=== PATIENT | female | born 1995 | race Caucasian/White ===

== ENCOUNTER 2024-05-19 00:02 | Inpatient (IN) | payer OTHER, SELFPAY ==
[2024-05-19 00:04] VITALS: BP 105/72; PULSE 83; RESP 18; TEMP 36.6; O2SAT 95; BMI 34.8
--- NOTE | 2024-05-19 00:39 | ED.PSYCH ---
HPI - Psych General Chief Complaint: Psychiatric Symptoms Stated Complaint: crisis Time Seen by Provider: 05/19/24 00:31 Source: patient Mode of arrival: ambulatory Limitations: no limitations History of Present Illness ED Provider: Dr. Brittany Anderson HPI Narrative: Patient comes to the emergency room complaining of suicidal ideation. Patient states that 3 days ago, patient at home when the patient was with him. Patient feels that, states that she wants to slit her wrists in front of everyone. Per nursing report, patient arrived to the triage area with her guardian become lives with. Patient had left home without telling anybody and the guarding called for help. Patient reporting feeling anxious, denies HI. Related Data Allergies Allergy/AdvReac Type Severity Reaction Status Date / Time No Known Allergies Allergy Verified 05/19/24 00:09 [No Known Allergies*] Review of Systems Review of Systems: Constitutional : No Weight loss, No Fever, No Chills, No Night Sweats, No Fatigue, No Malaise ENT/Mouth : No Hearing loss, No Ear Pain, No Nasal Congestion, No Sinus Pain, No Hoarseness, No sore throat, No Rhinorrhea, No Swallowing Difficulty Eyes: No Eye Pain, No Swelling, No Redness, No Foreign Body, No Discharge, No Vision Changes Cardiovascular : No Chest Pain, No SOB, No Dyspnea on Exertion, No Orthopnea, No Edema, No Palpitations Respiratory : No Cough, No Sputum, No Wheezing, No Smoke Exposure, No Dyspnea Gastrointestinal : No Nausea, No Vomiting, No Diarrhea, No Constipation, No abdominal Pain, No Hematochezia, No Melena Genitourinary : no irregular bleeding, No Dysuria, No Urinary Frequency, No Hematuria, No Urinary Incontinence, No Urgency, No Flank Pain, No Urinary Flow Changes, No Hesitancy Musculoskeletal : No joint pain, No Myalgias, No Joint Swelling Skin : No Skin Lesions, No rash Neuro : No Weakness, No Numbness, No Paresthesias, No Loss of Consciousness, No Dizziness, No Headache Psych : No Anxiety/Panic, complaining of depression, SI, no HI Heme/Lymph: No Bruising, No Bleeding,No Lymphadenopathy Endocrine : No Polyuria, No Polydipsia, No Temperature Intolerance PMFSH Social History Social History Do you have a plan to hurt others: No Plan Physical Exam Vital Signs: Vital Signs: Last Vital Signs Temp 97.8 F 05/19/24 00:04 Pulse 83 05/19/24 00:04 Resp 18 05/19/24 00:04 BP 105/72 05/19/24 00:04 Pulse Ox 95 05/19/24 00:04 O2 Del Method Room Air 05/19/24 00:04 BMI result Body Mass Index 34.8 Const: Other: Appearance: Alert. Oriented X3. No acute distress. Eyes: Pupils equal, round and reactive to light. Bilateral mydriasis ENT: Pharynx normal. Neck: Normal inspection. Neck supple. No lymph nodes noted. No crepitus CVS: Normal heart rate and rhythm. Pulses normal. Normal S1 and S2 Respiratory: No respiratory distress. Breath sounds normal. No Wheezing. No rales Abdomen: Soft and nontender. No rigidity. No distention. Skin: Skin warm and dry. Normal skin color. Normal skin turgor. Extremities: No lower extremity edema. No Lacerations. No Rash Neuro: Oriented X 3. No motor deficit. No sensory deficit. Moving all extremities. No slurred speech. CN 2 through 12 grossly intact Psych: calm, cooperative, normal affect Course Course Course Narrative: -all of patient's labs pending -care team consult pending Medical Decision Making Differential Diagnosis Differential Diagnoses: The differential diagnosis associated with the presentation includes (Anxiety, depression, grieving) Admission/Observation Consideration of admission/observation: Escalation of care including admission/observation considered (Patient waiting to be seen by the care team to determine patient's disposition) Discharge Plan Discharge Clinical Impression: Suicidal ideation, Depression Patient Disposition: Still a Patient Print Language: [place]
[2024-05-19 01:37] LABS: MANUAL DIFF FLAG NO
[2024-05-19 01:40] LABS: Delay - Chemistry DELAY
[2024-05-19 01:41] LABS: Basophils Absolute Auto 0.1 X10*3/uL (0.0-0.2); Basophils Percent Auto 0.9 % (0-2); Eosinophils Absolute Auto 0.1 X10*3/uL (0.0-0.4); Eosinophils Percent Auto 0.9 % (0-4); Hematocrit 38.2 % (37.0-47.0); Hemoglobin 13.3 g/dl (12.0-16.0); Imm Gran Abs Auto 0.01 X10*3/uL (0.00-0.03); Imm Gran Pct Auto 0.1 % (0.0-0.4); Lymphocytes Absolute Auto 2.3 X10*3/uL (1.2-4.9); Mean Corpuscular HGB Conc 34.8 g/dl (31.0-35.0); Mean Corpuscular Hemoglobin 29.3 pg (27.0-33.0); Mean Corpuscular Volume 84.1 fL (80.0-98.0); Mean Platelet Volume 10.1 fL (9.4-12.3); Monocytes Absolute Auto 0.7 X10*3/uL (0.1-1.2); Monocytes Percent Auto 9.2 % (2-11); Neutrophils Absolute Auto 4.4 x10*3/uL (2.0-8.3); Neutrophils Percent Auto 58.9 % (45-73); Platelet Count 318 X10*3/uL (160-400); Red Blood Count 4.54 X10*6/uL (4.20-5.50); Red Cell Distribution Width 12.9 % (11.0-16.0); White Blood Count 7.5 X10*3/uL (4.8-10.8)
[2024-05-19 01:41] LABS: Appearance Urine Cloudy; Color Urine Dark Yellow; Glucose Urine UA Negative (Negative); Leukocyte Esterase Urine Trace (Negative); Nitrite Urine Negative (Negative); PH 5.5 (5.0-9.0); Specific Gravity - Urine >= 1.030 (1.005-1.025); UMIC TRIGGER UACC YES; Urine Blood Negative (Negative); Urine Ketones Trace mg/dL (Negative); Urine Protein Trace mg/dL (Neg-Trace)
[2024-05-19 01:49] LABS: Amphetamine Screen Urine Not Detected (Not Detect); Barbiturates, Urine Not Detected (Not Detect); Benzodiazepines Screen Urine Not Detected (Not Detect); Buprenorphine Scr Not Detected (Not Detect); Cannabinoid Screen Urine Not Detected (Not Detect); Cocaine Screen Urine Not Detected (Not Detect); Fentanyl, urine Not Detected (Not Detect); Methadone Screen, Urine Not Detected (Not Detect); Opiate Screen Urine Not Detected (Not Detect); Oxycodone Screen Urine Not Detected (Not Detect); Phencyclidine Screen Urine Not Detected (Not Detect)
[2024-05-19 01:51] LABS: Bacteria Urine 1+ (None Seen); Hyaline Casts Urine 0-2 /LPF (0-2); RBC Urine 0-2 /HPF (0-2); WBC Urine 0-5 /HPF (0-5)
[2024-05-19 02:09] LABS: Alanine Aminotransferase 23 U/L (0-31); Albumin Level 4.3 g/dL (3.5-5.0); Alkaline Phosphatase 93 U/L (39-117); Anion Gap 11 (12-20); Aspartate Amino Transferase 18 U/L (5-31); Bilirubin Total 0.3 mg/dL (0.0-1.0); Blood Urea Nitrogen 16 mg/dL (9-16); Calcium 9.9 mg/dL (8.4-10.2); Carbon Dioxide 27 mmol/L (22-29); Chloride 106 mmol/L (96-108); Creatinine Clr Calc Pharmacy 103.2; Estimated Glomerular Filt Rate > 60; Ethanol < 10 mg/dL; Glucose Random 103 mg/dL (60-115); HCG Quantitative < 2 mIU/mL; Potassium 4.2 mmol/L (3.3-5.1); Sodium 140 mmol/L (135-145); Total Protein 7.8 g/dL (6.5-8.0)
[2024-05-19 03:23] LABS: Acetaminophen LAB < 3 mcg/mL (<30); Salicylate < 5.0 mg/dL (15-30)
[2024-05-19 07:26] VITALS: RESP 16
--- NOTE | 2024-05-19 10:15 | PC.NURSE ---
Assumed care of patient at 0645, patient appears to be in no apparent distress this am, ambulating with steady gait around BH pod, offering no complaints. Patient aware of plan of care for inpatient bedsearch
[2024-05-19 10:39] VITALS: BP 109/53; PULSE 85; RESP 16; TEMP 36.6; O2SAT 99
--- NOTE | 2024-05-19 12:39 | MHC.CARE ---
Mother called and reports patient was seen by [facility] in the community and dispo is for inpatient level of care. Mother is legal guardian and will email paperwork to psychreferral email.
[2024-05-19 16:38] VITALS: RESP 16
[2024-05-19 20:09] VITALS: BP 124/67; PULSE 95; RESP 20; TEMP 36.5; O2SAT 97
[2024-05-19] MEDS: Escitalopram Oxalate 10 MG TABLET PO (20:21)
[2024-05-19] MEDS: LORazepam 1 MG TABLET PO (20:47)
[2024-05-20 06:37] VITALS: BP 104/74; PULSE 108; RESP 17; TEMP 36.8; O2SAT 97
--- NOTE | 2024-05-20 15:57 | MHC.CARE ---
Received a call from [facility] with Information for pre-authorization: [id number] ([facility])
[2024-05-20 16:47] VITALS: BP 99/60; PULSE 77; RESP 16; TEMP 36.8; O2SAT 97
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
[2024-05-20 20:00] VITALS: BP 116/67; PULSE 106; RESP 16; TEMP 36.3; O2SAT 96
[2024-05-20] MEDS: traZODone HCL 50 MG TABLET PO (21:15)
[2024-05-20] MEDS: Escitalopram Oxalate 10 MG TABLET PO (21:15)
[2024-05-21 07:47] VITALS: BP 102/50; PULSE 73; RESP 14; TEMP 36.6; O2SAT 96
[2024-05-21 09:10] LABS: Alanine Aminotransferase 20 U/L (0-31); Albumin Level 4.1 g/dL (3.5-5.0); Alkaline Phosphatase 94 U/L (39-117); Anion Gap 12 (12-20); Aspartate Amino Transferase 15 U/L (5-31); Blood Urea Nitrogen 18 mg/dL (9-16); Calcium 9.7 mg/dL (8.4-10.2); Carbon Dioxide 27 mmol/L (22-29); Chloride 106 mmol/L (96-108); Cholesterol 172 mg/dL (<200); Creatinine Clr Calc Pharmacy 109.5; Estimated Glomerular Filt Rate > 60; Glucose Fasting 91 mg/dL (60-99); HDL Cholesterol 59 mg/dL (>40); LDL Cholesterol Calculated 101 mg/dL (<100); Potassium 4.2 mmol/L (3.3-5.1); Sodium 141 mmol/L (135-145); Total Protein 7.4 g/dL (6.5-8.0); Triglycerides 61 mg/dL (<150)
[2024-05-21 09:28] LABS: Bilirubin Total 0.5 mg/dL (0.0-1.0)
[2024-05-21] MEDS: hydrOXYzine HCL 25 MG TABLET PO (10:48)
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
[2024-05-21 21:30] VITALS: PULSE 78; RESP 16; TEMP 36.8; O2SAT 96
[2024-05-21] MEDS: busPIRone HCl 5 MG TABLET PO (21:53)
[2024-05-21] MEDS: Escitalopram Oxalate 10 MG TABLET PO (21:53)
[2024-05-22 07:59] VITALS: BP 121/71; PULSE 80; RESP 14; TEMP 37.1; O2SAT 98
--- NOTE | 2024-05-22 08:59 | HO.PSYCHPN ---
Subjective Subjective Date of Service: 05/22/24 Reason For Visit: crisis Subjective Notes: 3 Day Interim History: Reviewed with Dr. Harper. pt signed 3 day notice. Pt reports feeling calmer today; pt stated, I'm still having impulsivity but I'm starting to feel like I can control it. I also still am having thoughts of self harm but not as much . Pt is hoping to discharge on Monday. Pt denies HI/VH/AH. Medication Compliance: Yes Side effects from medications: No Attending Groups: Yes Review of Systems Constitutional: Reports as per HPI Eyes: Reports as per HPI Reports as per HPI Cardiovascular: Reports as per HPI Respiratory: Reports as per HPI Gastrointestinal: Reports as per HPI Musculoskeletal: Reports as per HPI Skin/Breast: Reports as per HPI Reports as per HPI Psychiatric: Reports as per HPI Endocrine: Reports as per HPI Hematologic/Lymphatic: Reports as per HPI Allergic/Immunologic: Reports as per HPI Mental Status Exam Mental Status Exam Narrative: Pt is alert and oriented; behavior is cooperative, friendly and calm; dressed in casual attire; mood is described as calmer ; eye contact appropriate; Speech is slower rate, normal volume and not pressured, pt has a speech impediment; thought process is organized; Thought content is on tx; otherwise pertinent to relevant topics and without any delusional content, paranoid ideations or grandiosity; denies HI/VH/AH. Pt reports suicidal ideation with plan to cut wrists. Diagnostics Vital Signs (24Hr): Vital Signs - 24 hr 05/21/24 21:30 05/22/24 07:59 Temperature 98.3 F 98.7 F Pulse Rate 78 80 Respiratory Rate 16 14 Blood Pressure 121/71 Pulse Oximetry 96 98 Oxygen Delivery Method Room Air Room Air BMI result Body Mass Index 34.8 Labs 05/19/24 01:31 05/21/24 08:37 Labs: Laboratory Results - last 48 hr 05/21/24 08:37 Sodium 141 Potassium 4.2 Chloride 106 Carbon Dioxide 27 Anion Gap 12 BUN 18 H Creatinine 0.81 Estim Creat Clear Calc 109.5 Estimated GFR > 60 Fasting Glucose 91 Calcium 9.7 Total Bilirubin 0.5 AST 15 ALT 20 Alkaline Phosphatase 94 Total Protein 7.4 Albumin 4.1 Triglycerides 61 Cholesterol 172 LDL Cholesterol, Calc 101 H HDL Cholesterol 59 Medications Medications Current Medications Acetaminophen (Acetaminophen 325 Mg Tablet) 650 mg PO Q6H PRN PRN Reason: Headache/Pain Mild Scale (1-3) Al Hydroxide/Mg Hydroxide (Magnesium Hydrox/Alum Hydrox 30 Ml Oral.Susp) 30 ml PO Q6H PRN PRN Reason: Heartburn/Nausea Buspirone HCl (Buspirone Hcl 5 Mg Tablet) 5 mg PO TID ALFREDO Last Admin: 05/21/24 21:53 Dose: 5 mg Escitalopram Oxalate (Escitalopram Oxalate 10 Mg Tablet) 10 mg PO BEDTIME ALFREDO Last Admin: 05/21/24 21:53 Dose: 10 mg Hydroxyzine HCl (Hydroxyzine Hcl 25 Mg Tablet) 25 mg PO Q6H PRN PRN Reason: Anxiety Last Admin: 05/21/24 10:48 Dose: 25 mg Magnesium Hydroxide (Milk Of Magnesia 30 Ml Oral.Susp) 30 ml PO DAILY PRN PRN Reason: Constipation Nicotine Polacrilex (Nicotine Polacrilex 2 Mg Gum) 4 mg BUCCAL Q2H PRN PRN Reason: Nicotine Cravings Trazodone HCl (Trazodone Hcl 50 Mg Tablet) 50 mg PO BEDTIME MRX1 PRN PRN Reason: Insomnia Last Admin: 05/20/24 21:15 Dose: 50 mg Allergies Allergies Allergy/AdvReac Type Severity Reaction Status Date / Time No Known Allergies Allergy Verified 05/19/24 00:09 [No Known Allergies*] Assessment & Plan Assessment & Plan (1) MDD (major depressive disorder), recurrent episode, moderate: Status: Acute Code(s): F33.1 - Major depressive disorder, recurrent, moderate (2) PTSD (post-traumatic stress disorder): Status: Acute Code(s): F43.10 - Post-traumatic stress disorder, unspecified (3) Complicated grief: Status: Acute Code(s): F43.21 - Adjustment disorder with depressed mood Plan Patient is a 28 year old female with hx of MDD, PTSD and cerebral palsy who presented to ER with suicidal ideation secondary to her grandfather passing away. Plan: CV 15 minute safety checks Continue home medications Start: Buspar 5mg PO TID;risks/benefits reviewed. encourage groups obtain collateral referral to outpatient prescriber and therapist discharge planning 05/22: pt signed 3 day notice. Pt reports feeling calmer today; pt stated, I'm still having impulsivity but I'm starting to feel like I can control it. I also still am having thoughts of self harm but not as much . Pt is hoping to discharge on Monday. Pt denies HI/VH/AH. Patient educated on: diagnosis, medication risk/benefits and therapeutic strategies Informed Consent: understands Reason for continued inpatient stay Substantial Risk for: harm to self and med/psych decompensation Time Spent With Patient Time: Total time managing care of this patient today _20___ minutes.
[2024-05-22] MEDS: busPIRone HCl 5 MG TABLET PO ×3 (09:27→20:45)
[2024-05-22 19:40] VITALS: BP 111/56; PULSE 82; RESP 16; TEMP 36.6; O2SAT 98
[2024-05-22] MEDS: Escitalopram Oxalate 10 MG TABLET PO (20:45)
[2024-05-23 07:00] VITALS: BMI 34.3
[2024-05-23 07:35] VITALS: BP 107/63; PULSE 83; RESP 16; TEMP 36.4; O2SAT 98
[2024-05-23] MEDS: busPIRone HCl 5 MG TABLET PO ×3 (08:18→20:25)
--- NOTE | 2024-05-23 10:07 | HO.PSYCHPN ---
Subjective Subjective Date of Service: 05/23/24 Reason For Visit: crisis Subjective Notes: 3 Day Interim History: Pt reports feeling good; no complaints; behavior in good control; her affect is brighter ; she is eating meals. attending groups; pt signed 3 day notice. reports reduced intrusive self harm thoughts. Pt is hoping to discharge on Monday. Pt denies HI/VH/AH. Medication Compliance: Yes Review of Systems Review of Systems Constitutional : No Weight loss, No Fever, No Chills, No Night Sweats, No Fatigue, No Malaise ENT/Mouth : No Hearing loss, No Ear Pain, No Nasal Congestion, No Sinus Pain, No Hoarseness, No sore throat, No Rhinorrhea, No Swallowing Difficulty Eyes: No Eye Pain, No Swelling, No Redness, No Foreign Body, No Discharge, No Vision Changes Cardiovascular : No Chest Pain, No SOB, No Dyspnea on Exertion, No Orthopnea, No Edema, No Palpitations Respiratory : No Cough, No Sputum, No Wheezing, No Smoke Exposure, No Dyspnea Gastrointestinal : No Nausea, No Vomiting, No Diarrhea, No Constipation, No abdominal Pain, No Hematochezia, No Melena Genitourinary : no irregular bleeding, No Dysuria, No Urinary Frequency, No Hematuria, No Urinary Incontinence, No Urgency, No Flank Pain, No Urinary Flow Changes, No Hesitancy Musculoskeletal : No joint pain, No Myalgias, No Joint Swelling Skin : No Skin Lesions, No rash Neuro : No Weakness, No Numbness, No Paresthesias, No Loss of Consciousness, No Dizziness, No Headache Psych : No Anxiety/Panic, complaining of depression, SI, no HI Heme/Lymph: No Bruising, No Bleeding,No Lymphadenopathy Endocrine : No Polyuria, No Polydipsia, No Temperature Intolerance Constitutional: Reports as per HPI Eyes: Reports as per HPI Reports as per HPI Cardiovascular: Reports as per HPI Respiratory: Reports as per HPI Gastrointestinal: Reports as per HPI Musculoskeletal: Reports as per HPI Skin/Breast: Reports as per HPI Reports as per HPI Psychiatric: Reports as per HPI Endocrine: Reports as per HPI Hematologic/Lymphatic: Reports as per HPI Allergic/Immunologic: Reports as per HPI Mental Status Exam Mental Status Exam Narrative: Pt is alert and oriented; behavior is cooperative, friendly and calm; dressed in casual attire; mood is described as calmer ; eye contact appropriate; Speech is slower rate, normal volume and not pressured, pt has a speech impediment and speechis halting at times; thought process is organized; Thought content is on tx; otherwise pertinent to relevant topics and without any delusional content, paranoid ideations or grandiosity; denies HI/VH/AH. Pt reports suicidal ideation with plan to cut wrists. Diagnostics Vital Signs (24Hr): Vital Signs - 24 hr 05/22/24 19:40 05/23/24 07:35 Temperature 97.8 F 97.5 F Pulse Rate 82 83 Respiratory Rate 16 16 Blood Pressure 111/56 L 107/63 Pulse Oximetry 98 98 Oxygen Delivery Method Room Air Room Air BMI result Body Mass Index 34.8 Labs 05/19/24 01:31 05/21/24 08:37 Medications Medications Current Medications Acetaminophen (Acetaminophen 325 Mg Tablet) 650 mg PO Q6H PRN PRN Reason: Headache/Pain Mild Scale (1-3) Al Hydroxide/Mg Hydroxide (Magnesium Hydrox/Alum Hydrox 30 Ml Oral.Susp) 30 ml PO Q6H PRN PRN Reason: Heartburn/Nausea Buspirone HCl (Buspirone Hcl 5 Mg Tablet) 5 mg PO TID [facility] Last Admin: 05/23/24 08:18 Dose: 5 mg Escitalopram Oxalate (Escitalopram Oxalate 10 Mg Tablet) 10 mg PO BEDTIME [facility] Last Admin: 05/22/24 20:45 Dose: 10 mg Hydroxyzine HCl (Hydroxyzine Hcl 25 Mg Tablet) 25 mg PO Q6H PRN PRN Reason: Anxiety Last Admin: 05/21/24 10:48 Dose: 25 mg Magnesium Hydroxide (Milk Of Magnesia 30 Ml Oral.Susp) 30 ml PO DAILY PRN PRN Reason: Constipation Nicotine Polacrilex (Nicotine Polacrilex 2 Mg Gum) 4 mg BUCCAL Q2H PRN PRN Reason: Nicotine Cravings Trazodone HCl (Trazodone Hcl 50 Mg Tablet) 50 mg PO BEDTIME MRX1 PRN PRN Reason: Insomnia Last Admin: 05/20/24 21:15 Dose: 50 mg Allergies Allergies Allergy/AdvReac Type Severity Reaction Status Date / Time No Known Allergies Allergy Verified 05/19/24 00:09 [No Known Allergies*] Assessment & Plan Assessment & Plan (1) MDD (major depressive disorder), recurrent episode, moderate: Status: Acute Code(s): F33.1 - Major depressive disorder, recurrent, moderate (2) PTSD (post-traumatic stress disorder): Status: Acute Code(s): F43.10 - Post-traumatic stress disorder, unspecified (3) Complicated grief: Status: Acute Code(s): F43.21 - Adjustment disorder with depressed mood Plan Patient is a 28 year old female with hx of MDD, PTSD and cerebral palsy who presented to ER with suicidal ideation secondary to her grandfather passing away. Plan: CV 15 minute safety checks Continue home medications Start: Buspar 5mg PO TID;risks/benefits reviewed. encourage groups obtain collateral referral to outpatient prescriber and therapist discharge planning 05/22: pt signed 3 day notice. Pt reports feeling calmer today; pt stated, I'm still having impulsivity but I'm starting to feel like I can control it. I also still am having thoughts of self harm but not as much . Pt is hoping to discharge on Monday. Pt denies HI/VH/AH. Reason for continued inpatient stay Substantial Risk for: harm to self and inability to function Time Spent With Patient Time: Total time managing care of this patient today ____ minutes.
[2024-05-23 17:58] VITALS: BP 136/64; PULSE 71; TEMP 36.5; O2SAT 98
[2024-05-23] MEDS: hydrOXYzine HCL 25 MG TABLET PO (20:25)
[2024-05-23] MEDS: Escitalopram Oxalate 10 MG TABLET PO (20:25)
[2024-05-24 08:30] VITALS: BP 104/57; PULSE 96; RESP 16; TEMP 36.8; O2SAT 100
[2024-05-24] MEDS: busPIRone HCl 5 MG TABLET PO ×3 (08:41→21:04)
--- NOTE | 2024-05-24 09:06 | P.PNPSI_ITS ---
Subjective Subjective Date of Service: 05/24/24 Reason For Visit: crisis Subjective Notes: 3 Day Interim History: Reviewed with Dr. Harper. Pt reports feeling more like myself today ; Pt stated, I am still have some intrusive thoughts to call 911 but it's quieter. I think it's related to my grandfather passing away . Pt denies SI/HI/VH/AH. Pt reports she is hoping to leave on Monday d/t her grandfathers being on Monday. Continue current tx plan. Medication Compliance: Yes Side effects from medications: No Attending Groups: Yes Review of Systems Constitutional: Reports as per HPI Eyes: Reports as per HPI Reports as per HPI Cardiovascular: Reports as per HPI Respiratory: Reports as per HPI Gastrointestinal: Reports as per HPI Musculoskeletal: Reports as per HPI Skin/Breast: Reports as per HPI Reports as per HPI Psychiatric: Reports as per HPI Endocrine: Reports as per HPI Hematologic/Lymphatic: Reports as per HPI Allergic/Immunologic: Reports as per HPI Mental Status Exam Mental Status Exam Narrative: Pt is alert and oriented; behavior is cooperative, friendly and calm; dressed in casual attire; mood is described as better ; eye contact appropriate; Speech is slower rate, normal volume and not pressured, pt has a speech impediment; thought process is organized; Thought content is on tx; otherwise pertinent to relevant topics and without any delusional content, paranoid ideations or grandiosity; denies SI/HI/VH/AH. Diagnostics Vital Signs (24Hr): Vital Signs - 24 hr 05/23/24 17:58 05/24/24 08:30 Temperature 97.7 F 98.2 F Pulse Rate 71 96 Respiratory Rate 16 Blood Pressure 136/64 104/57 L Pulse Oximetry 98 100 Oxygen Delivery Method Room Air Room Air BMI result Body Mass Index 34.3 Labs 05/19/24 01:31 05/21/24 08:37 Medications Medications Current Medications Acetaminophen (Acetaminophen 325 Mg Tablet) 650 mg PO Q6H PRN PRN Reason: Headache/Pain Mild Scale (1-3) Al Hydroxide/Mg Hydroxide (Magnesium Hydrox/Alum Hydrox 30 Ml Oral.Susp) 30 ml PO Q6H PRN PRN Reason: Heartburn/Nausea Buspirone HCl (Buspirone Hcl 5 Mg Tablet) 5 mg PO TID [facility] [place] Last Admin: 05/24/24 08:41 Dose: 5 mg Escitalopram Oxalate (Escitalopram Oxalate 10 Mg Tablet) 10 mg PO BEDTIME [facility] Last Admin: 05/23/24 20:25 Dose: 10 mg Hydroxyzine HCl (Hydroxyzine Hcl 25 Mg Tablet) 25 mg PO Q6H PRN PRN Reason: Anxiety Last Admin: 05/23/24 20:25 Dose: 25 mg Magnesium Hydroxide (Milk Of Magnesia 30 Ml Oral.Susp) 30 ml PO DAILY PRN PRN Reason: Constipation Nicotine Polacrilex (Nicotine Polacrilex 2 Mg Gum) 4 mg BUCCAL Q2H PRN PRN Reason: Nicotine Cravings Trazodone HCl (Trazodone Hcl 50 Mg Tablet) 50 mg PO BEDTIME MRX1 PRN PRN Reason: Insomnia Last Admin: 05/20/24 21:15 Dose: 50 mg Allergies Allergies Allergy/AdvReac Type Severity Reaction Status Date / Time No Known Allergies Allergy Verified 05/19/24 00:09 [No Known Allergies*] Assessment & Plan Assessment & Plan (1) MDD (major depressive disorder), recurrent episode, moderate: Status: Acute Code(s): F33.1 - Major depressive disorder, recurrent, moderate (2) PTSD (post-traumatic stress disorder): Status: Acute Code(s): F43.10 - Post-traumatic stress disorder, unspecified (3) Complicated grief: Status: Acute Code(s): F43.21 - Adjustment disorder with depressed mood Plan Patient is a 28 year old female with hx of MDD, PTSD and cerebral palsy who presented to ER with suicidal ideation secondary to her grandfather passing away. Plan: CV 15 minute safety checks Continue home medications Start: Buspar 5mg PO TID;risks/benefits reviewed. encourage groups obtain collateral referral to outpatient prescriber and therapist discharge planning 05/22: pt signed 3 day notice. Pt reports feeling calmer today; pt stated, I'm still having impulsivity but I'm starting to feel like I can control it. I also still am having thoughts of self harm but not as much . Pt is hoping to discharge on Monday. Pt denies HI/VH/AH. 05/24: Pt reports feeling more like myself today ; Pt stated, I am still have some intrusive thoughts to call 911 but it's quieter. I think it's related to my grandfather passing away . Pt denies SI/HI/VH/AH. Pt reports she is hoping to leave on Monday d/t her grandfathers being on Monday. Continue current tx plan. Patient educated on: diagnosis, medication risk/benefits and therapeutic strategies Informed Consent: understands Reason for continued inpatient stay Substantial Risk for: med/psych decompensation Time Spent With Patient Time: Total time managing care of this patient today _20___ minutes.
[2024-05-24 19:12] VITALS: BP 115/68; PULSE 83; RESP 16; TEMP 36.4; O2SAT 98
[2024-05-24] MEDS: Escitalopram Oxalate 10 MG TABLET PO (21:04)
[2024-05-24] MEDS: hydrOXYzine HCL 25 MG TABLET PO (21:07)
[2024-05-24] MEDS: traZODone HCL 50 MG TABLET PO (23:27)
[2024-05-25 08:00] VITALS: BP 106/62; PULSE 75; RESP 18; TEMP 36.9; O2SAT 99
[2024-05-25] MEDS: busPIRone HCl 5 MG TABLET PO ×3 (08:38→21:55)
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
[2024-05-25 20:08] VITALS: BP 121/59; PULSE 88; RESP 18; TEMP 36.8; O2SAT 97
[2024-05-25] MEDS: Escitalopram Oxalate 10 MG TABLET PO (21:57)
[2024-05-25] MEDS: hydrOXYzine HCL 25 MG TABLET PO (21:57)
[2024-05-26 07:31] VITALS: BP 115/71; PULSE 70; RESP 16; TEMP 36.8; O2SAT 98
[2024-05-26] MEDS: busPIRone HCl 5 MG TABLET PO ×3 (09:26→21:18)
--- NOTE | 2024-05-26 16:30 | HO.PSYCHPN ---
Subjective Subjective Date of Service: 05/26/24 Reason For Visit: crisis Interim History: calm, cooperative. planning to discharge tomorrow. no questions or complaints. per staff, some depression. feeling better since sex pest peer gone. anticipating DC monday or monday. Mental Status Exam Mental Status Exam Narrative: Pt is alert and oriented; behavior is cooperative, friendly and calm; dressed in casual attire; mood is described as OK ; eye contact appropriate; Speech is slower rate, normal volume and not pressured, pt has a speech impediment; thought process is organized; Thought content is on tx; otherwise pertinent to relevant topics and without any delusional content, paranoid ideations or grandiosity; denies SI/HI/VH/AH. Diagnostics Vital Signs (24Hr): Vital Signs - 24 hr 05/25/24 20:08 05/26/24 07:31 Temperature 98.2 F 98.3 F Pulse Rate 88 70 Respiratory Rate 18 16 Blood Pressure 121/59 L 115/71 Pulse Oximetry 97 98 Oxygen Delivery Method Room Air Room Air BMI result Body Mass Index 34.3 Labs 05/19/24 01:31 05/21/24 08:37 Medications Medications Current Medications Acetaminophen (Acetaminophen 325 Mg Tablet) 650 mg PO Q6H PRN PRN Reason: Headache/Pain Mild Scale (1-3) Al Hydroxide/Mg Hydroxide (Magnesium Hydrox/Alum Hydrox 30 Ml Oral.Susp) 30 ml PO Q6H PRN PRN Reason: Heartburn/Nausea Buspirone HCl (Buspirone Hcl 5 Mg Tablet) 5 mg PO TID [facility] Last Admin: 05/26/24 15:15 Dose: 5 mg Escitalopram Oxalate (Escitalopram Oxalate 10 Mg Tablet) 10 mg PO BEDTIME [facility] Last Admin: 05/25/24 21:57 Dose: 10 mg Hydroxyzine HCl (Hydroxyzine Hcl 25 Mg Tablet) 25 mg PO Q6H PRN PRN Reason: Anxiety Last Admin: 05/25/24 21:57 Dose: 25 mg Magnesium Hydroxide (Milk Of Magnesia 30 Ml Oral.Susp) 30 ml PO DAILY PRN PRN Reason: Constipation Nicotine Polacrilex (Nicotine Polacrilex 2 Mg Gum) 4 mg BUCCAL Q2H PRN PRN Reason: Nicotine Cravings Trazodone HCl (Trazodone Hcl 50 Mg Tablet) 50 mg PO BEDTIME MRX1 PRN PRN Reason: Insomnia Last Admin: 05/24/24 23:27 Dose: 50 mg Allergies Allergies Allergy/AdvReac Type Severity Reaction Status Date / Time No Known Allergies Allergy Verified 05/19/24 00:09 [No Known Allergies*] Assessment & Plan Assessment & Plan (1) MDD (major depressive disorder), recurrent episode, moderate: Status: Acute Code(s): F33.1 - Major depressive disorder, recurrent, moderate (2) PTSD (post-traumatic stress disorder): Status: Acute Code(s): F43.10 - Post-traumatic stress disorder, unspecified (3) Complicated grief: Status: Acute Code(s): F43.21 - Adjustment disorder with depressed mood Plan Patient is a 28 year old female with hx of MDD, PTSD and cerebral palsy who presented to ER with suicidal ideation secondary to her grandfather passing away. Plan: CV 15 minute safety checks Continue home medications Start: Buspar 5mg PO TID;risks/benefits reviewed. encourage groups obtain collateral referral to outpatient prescriber and therapist discharge planning 05/22: pt signed 3 day notice. Pt reports feeling calmer today; pt stated, I'm still having impulsivity but I'm starting to feel like I can control it. I also still am having thoughts of self harm but not as much . Pt is hoping to discharge on Monday. Pt denies HI/VH/AH. 05/24: Pt reports feeling more like myself today ; Pt stated, I am still have some intrusive thoughts to call 911 but it's quieter. I think it's related to my grandfather passing away . Pt denies SI/HI/VH/AH. Pt reports she is hoping to leave on Monday d/t her grandfathers being on Monday. Continue current tx plan. 05/25: stable, improved. continue current mgmt. 05/26: no change. DC tomorrow. Reason for continued inpatient stay Substantial Risk for: harm to self and rapid decompensation Time Spent With Patient Time: Total time managing care of this patient today ____ minutes.
[2024-05-26 20:40] VITALS: BP 107/63; PULSE 92; RESP 16; TEMP 36.4; O2SAT 98
[2024-05-26] MEDS: Escitalopram Oxalate 10 MG TABLET PO (21:17)
[2024-05-26] MEDS: hydrOXYzine HCL 25 MG TABLET PO (21:18)
[2024-05-27 07:25] VITALS: BP 109/67; PULSE 77; RESP 16; TEMP 36.6; O2SAT 98
[2024-05-27 08:23] VITALS: BP 109/67; PULSE 77; RESP 16; TEMP 36.6; O2SAT 98
[2024-05-27] MEDS: busPIRone HCl 5 MG TABLET PO (08:29)
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
== END 2024-05-27 11:25 | disposition home or self-care (01) | DRG 885 ==
LOC: HO.ED 01:28 → HO.PADLT16 05-20 14:06
PROVIDERS: Physician Assistant; Admitting Provider Registered Nurse; Emergency Provider Emergency Medicine; PCP Family Medicine; Responsible Provider Registered Nurse; Visit Provider Psychiatry & Neurology Psychiatry
DX: F33.1 Major depressive disorder, recurrent, moderate (principal); R45.851 Suicidal ideations; F43.81 Prolonged grief disorder; F17.210 Nicotine dependence, cigarettes, uncomplicated; Z71.6 Tobacco abuse counseling; Z63.4 Disappearance and death of family member; F43.10 Post-traumatic stress disorder, unspecified; G80.9 Cerebral palsy, unspecified; Z79.899 Other long term (current) drug therapy
CPT/HCPCS: 36415; 80053; 80061; 80143; 80179; 80307; 81001; 84702; 85025; 99285

== ENCOUNTER → 2024-05-20 14:03 | Outpatient (BNV) | payer OTHER, SELFPAY | PROVIDERS: Admitting Provider Registered Nurse; Emergency Provider Emergency Medicine; PCP Family Medicine; Responsible Provider Registered Nurse; Visit Provider Registered Nurse | DX: F33.1 Major depressive disorder, recurrent, moderate (principal); F43.11 Post-traumatic stress disorder, acute; F43.21 Adjustment disorder with depressed mood | CPT/HCPCS: 90792; 99231; 99232; 99238 ==